=== PATIENT | male | born 1950 | race Caucasian/White ===

== ENCOUNTER 2022-02-25 10:07 | Outpatient (CLI) | payer MEDICARE, SELFPAY | END 2022-02-25 10:08 | disposition home or self-care (01) | PROVIDERS: PCP Internal Medicine; Visit Provider Neurological Surgery | DX: Z01.818 Encounter for other preprocedural examination (principal); M48.061 Spinal stenosis, lumbar region without neurogenic claudication | CPT/HCPCS: 36415; 86850; 86900; 86901 ==

== ENCOUNTER 2022-03-05 13:07 | Inpatient (IN) | payer MEDICARE, SELFPAY ==
[2022-02-19 11:13] VITALS: BMI 31.4
--- NOTE | 2022-02-19 11:39 | PC.NURSE ---
PRE-OP INSTRUCTIONS, PLEASE READ CAREFULLY Report to the Outpatient Waiting Room, entrance under the green pavilion located off [facility], at time _0600_ on date _03/05/22_. Planned Procedure Time: _0730_. PACK A SMALL OVERNIGHT BAG AND LEAVE IN THE CAR Time changes happen often and if your time is changed the preop area will call you the afternoon before. - You and your visitor will be asked to self-screen and do not enter if you have any COVID symptoms. - Only one visitor is requested with a max of two and NO children visitors are allowed at this time. - The patient visitor may be requested to leave or wait in car when not with patient due to distancing restrictions. - A mask is optional within the hospital. -VISITING HOURS 8AM-8PM Patients may have clear liquids (water, carbonated beverages, clear teas, apple juice) until 3 hours prior to surgery (0430 AM) with a maximum of 20 ounces. - No food from midnight until time of surgery Take the following medications with a SIP of water the morning of surgery: _CARBIDOPA-LEVODOPA, FLUDROCORTISONE_ Medications to discontinue _ASPIRIN PER DR. OVALLE'S INSTRUCTIONS_ Medications to discontinue per ANESTHESIA - _VITAMINS/SUPPLEMENTS 3 DAYS PRIOR TO SURGERY, Date to take last dose 03/01/22_ Please no make-up, nail uzbek, hairspray, perfume, deodorant, or body powder the day of surgery. No jewelry (including any body piercings) or valuables the day of surgery, leave them at home. Please take a shower or bath the night before, or the morning of, surgery with an antibacterial soap. Wear comfortable, loose fitting clothing. - Jewelry must be removed prior to entering the operating room. Rings and piercings that are not removed may be cut off. - The hospital will not accept responsibility for valuables. - Please leave all valuables, including medications, at home the day of surgery. If you are going home after surgery, a licensed solid waste truck driver must drive you home. - NO public transportation without another adult if you receive anesthesia. - We recommend that an adult stay with you for 24 hours following discharge. - We also recommend that you do not drive, make important decision, drink alcoholic beverages, or take any drugs that were not prescribed by your health care provider for at least 24 hours after your discharge time. Follow any additional instructions given to you from your surgeon. If you or anyone in your household have experienced Covid symptoms in the past week, please notify your surgeon or the nurse liaison at the phone number below for possible testing. Telephone instructions given to _PATIENT & SPOUSE and asked if any additional questions and then verbalized understanding. Patient advised to call surgeon office or pre surgery nurse liaison [phone] if any additional questions.
[2022-03-05] VITALS (16 sets, daily range): BP systolic 106–176; BP diastolic 62–90; PULSE 65–96; RESP 10–20; TEMP 36.2–37.1; O2SAT 92–100; BMI 33.0
--- NOTE | ~2022-03-05 | XR_ITS ---
EXAMINATION: XR fluoroscopy no charge DATE: 03/05/2022 11:13 INDICATION: Posterior lumbar L3-L4 interbody fusion TECHNIQUE: Single lateral fluoroscopic image of the lower lumbar spine was obtained during procedure performed by Dr. Rhodes. Radiologist was not present for the imaging or procedure. The amount of fl uoroscopy time used during this procedure was 0.1 minutes. COMPARISON: None. FINDINGS: Surgical retractors project over a lucent surgical defect posterior to the lower lumbar spine. Likely pre-existing L4-L5 instrumented anterior and posterior spinal fusions with interbody fusion bone gra ft cages and bilateral vertical pasquale and pedicle screw fixation. A pair of distal pedicle screws have been placed at L3 which are not yet connected via vertical rods. There is also been placement of a di fferent type of bone graft cage at L3-L4. There appears to be minimal retrolisthesis of L2 on L3 and L3 on L4. Vertebral body heights are normal. Mild disc height loss at L2-L3 and moderate disc height loss at L5-S1. IMPRESSION: 1. Fluoroscopy utilized for likely cephalad extension to L3 of a combined instrumented anterior and p osterior spinal fusion at L4-L5. See procedure note for further detail. Reviewed, dictated and finalized at location L. SKILLS EDUCATOR IMPRESSION: 1. Fluoroscopy utilized for likely cephalad extension to L3 of a combined instr umented anterior and posterior spinal fusion at L4-L5. See procedure note for f urther detail.
[2022-03-05] MEDS: LACTATED RINGERS 1,000 ML 30 ML IV CONT ×2 (06:45→11:32)
--- NOTE | 2022-03-05 07:25 | WPDANESEPPF ---
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 Patient Data Age: 71 Gender: M Height: 1.7 m Weight: 95.7 kg Last Vital Signs Temp 36.8 C 03/05/22 06:53 Pulse 65 03/05/22 06:53 Resp 16 03/05/22 06:53 BP 176/90 H 03/05/22 06:53 Pulse Ox 97 03/05/22 06:53 O2 Del Method Room Air 03/05/22 06:53 Allergies Allergy/AdvReac Type Severity Reaction Status Date / Time No Known Allergies Allergy Verified 03/05/22 06:16 Home Medications Medication Instructions Recorded Confirmed Type ascorbic acid (vitamin C) 500 mg 500 mg PO DAILY 02/19/22 03/05/22 History tablet (Vitamin C) aspirin 81 mg tablet,delayed 81 mg PO HS 02/19/22 03/05/22 History release atorvastatin 40 mg tablet 40 mg HS 02/19/22 03/05/22 History carbidopa 25 mg-levodopa 100 mg 1 tablet TID 02/19/22 03/05/22 History tablet cetirizine 10 mg tablet (Zyrtec) 10 mg PO DAILY 02/19/22 03/05/22 History cholecalciferol (vitamin D3) 25 25 mcg PO BID 02/19/22 03/05/22 History mcg (1,000 unit) chewable tablet cranberry 1 tab-cap EVERY OTHER DAY 02/19/22 03/05/22 History docusate sodium 100 mg capsule 100 mg PO BID 02/19/22 03/05/22 History (Colace) fludrocortisone 0.1 mg tablet 0.1 mg QAM 02/19/22 03/05/22 History lansoprazole 15 mg capsule,delayed 15 mg PO HS 02/19/22 03/05/22 History release melatonin 10 mg capsule 10 mg PO HS 02/19/22 03/05/22 History tadalafil 5 mg tablet 5 mg EVERY OTHER DAY 02/19/22 03/05/22 History zinc 1 tab-cap DAILY 02/19/22 03/05/22 History Other studies: pacer not pacer dependent more that 50% battery life Patient hx anesthesia problems: none Family hx anesthesia problems: none Results Review: All pre-operative results and documents have been reviewed as part of the pre-operative evaluation. [facility] Social History Social History Smoking status: Never smoker Second hand tobacco smoke exposure: No Alcohol intake: never Substance use: never Substance use type: does not use Living arrangements: with family Spiritual care concerns: No Anes - Eval Final PreProcedure Day of Procedure 03/05/22 07:25 Patient weight: obese Heart: regular rate and rhythm Lungs: clear to auscultation Airway: Mallampati scale class II Neurological: alert and oriented Last oral intake: >/= 8 hours ASA classification: III Emergent: no Anesthetic plan: proceed Anesthesia type and monitoring: general ETT and standard monitoring Results Review: All pre-operative results and documents have been reviewed as part of the pre-operative evaluation. Informed Consent: The patient's anesthetic plan and its attendant risks and benefits were discussed with the patient/family/POA. Questions were solicited and answers provided to the satisfaction of the patient/family/POA.
--- NOTE | 2022-03-05 08:39 | WPDHPUPDATE1 ---
History and Physical Update Update Date/Time: 03/05/22 08:39 History and Physical has been reviewed, including an updated exam of the patient. There are NO changes in the patient's condition. Risks, benefits, and alternatives have been discussed and questions answered. Patient agrees to proceed with procedure.
--- NOTE | 2022-03-05 08:39 | PM.IMHP ---
H&P: HPI History of Present Illness Date/Time: 03/05/22 08:39 Chief Complaint: Surya is a 71-year-old gentleman with back and leg pain related to junctional problems above and previous fusion who presents now for extension of his fusion to L3-4. He has not changed appreciably since we saw him last. He is not having bowel or bladder difficulty. He is not having any specific dermatomal numbness or muscle group weakness. Review of Systems Review of Systems: Patient denies shortness of breath, cough, fever, chills, nausea, vomiting, weight loss, weight gain, chest pain, dysuria. He has back and leg pain and stiffness as above. He his review of systems otherwise negative on 12 systems except as noted elsewhere. [facility] Social History Social History Smoking status: Never smoker Second hand tobacco smoke exposure: No Alcohol intake: never Substance use: never Substance use type: does not use Living arrangements: with family Spiritual care concerns: No Meds Home Medications and Allergies Home Medications Medication Instructions Recorded Confirmed Type ascorbic acid (vitamin C) 500 mg 500 mg PO DAILY 02/19/22 03/05/22 History tablet (Vitamin C) aspirin 81 mg tablet,delayed 81 mg PO HS 02/19/22 03/05/22 History release atorvastatin 40 mg tablet 40 mg HS 02/19/22 03/05/22 History carbidopa 25 mg-levodopa 100 mg 1 tablet TID 02/19/22 03/05/22 History tablet cetirizine 10 mg tablet (Zyrtec) 10 mg PO DAILY 02/19/22 03/05/22 History cholecalciferol (vitamin D3) 25 25 mcg PO BID 02/19/22 03/05/22 History mcg (1,000 unit) chewable tablet cranberry 1 tab-cap EVERY OTHER DAY 02/19/22 03/05/22 History docusate sodium 100 mg capsule 100 mg PO BID 02/19/22 03/05/22 History (Colace) fludrocortisone 0.1 mg tablet 0.1 mg QAM 02/19/22 03/05/22 History lansoprazole 15 mg capsule,delayed 15 mg PO HS 02/19/22 03/05/22 History release melatonin 10 mg capsule 10 mg PO HS 02/19/22 03/05/22 History tadalafil 5 mg tablet 5 mg EVERY OTHER DAY 02/19/22 03/05/22 History zinc 1 tab-cap DAILY 02/19/22 03/05/22 History Allergies Allergy/AdvReac Type Severity Reaction Status Date / Time No Known Allergies Allergy Verified 03/05/22 06:16 Vital Signs Vital Signs - 24 hr 03/05/22 06:53 Temperature 98.2 F Pulse Rate 65 Respiratory Rate 16 Blood Pressure 176/90 H Pulse Oximetry 97 Oxygen Delivery Room Air Exam Narrative: Strength is 5/5 in all muscle groups of the bilateral lower extremities. Sensation is intact to light touch throughout the lower extremities. Breathing is unlabored. Regular rate. Assessment and Plan Assessment and plan (1) Lumbar stenosis with neurogenic claudication: Code(s): M48.062 - Spinal stenosis, lumbar region with neurogenic claudication Status: Acute (2) Status post lumbar spinal fusion: Code(s): Z98.1 - Arthrodesis status Status: Acute Plan Surya is a 71-year-old gentleman with back and leg pain and claudication related to junctional stenosis who presents for L3-4 posterior lumbar interbody fusion. I again described to him that operation, its risks, potential benefits, the operative and postoperative course in detail answered all his questions personally. Indicates understanding and elects to proceed with that operation.
[2022-03-05] MEDS: ceFAZolin 2 GM/D5W 50 ML 2 GM/50 ML BAG IVPB (08:45)
[2022-03-05] MEDS: BUPIVACAINE/EPINEPHRINE 0.5% 10 ML VIAL INFILTRATE (09:19)
--- NOTE | 2022-03-05 11:28 | SUR.OPER ---
200mL of clear yellow urine drained from vora in OR
[2022-03-05] MEDS: fentaNYL CITRATE INJ (*CRX) 100 MCG/2 ML VIAL 25 MCG IV PUSH ×5 (11:51→13:00)
[2022-03-05] MEDS: HYDROcodone/acetaminophen (*CRX) 10-325 MG TABLET 1 TAB PO ×2 (14:16→19:52)
[2022-03-05] MEDS: CARBIDOPA/LEVODOPA 25/100 MG TABLET 1 TABLET BY MOUTH ×2 (15:30→17:47)
[2022-03-05] MEDS: KCL 20 MEQ/D5/0.45% SOD CHL 1,000 ML 100 ML IV CONT (15:31)
[2022-03-05] MEDS: CHOLECALCIFEROL 1,000 UNITS TABLET 1000 UNITS PO (17:47)
[2022-03-05] MEDS: DOCUSATE SODIUM 100 MG CAPSULE PO (17:47)
--- NOTE | 2022-03-05 18:18 | PC.NURSE ---
Patient walked the halls with RN and did great about 1800.
[2022-03-05] MEDS: PANTOPRAZOLE 40 MG TABLET PO (19:52)
[2022-03-05] MEDS: ATORVASTATIN 40 MG TABLET BY MOUTH (19:52)
[2022-03-05] MEDS: MELATONIN 5 MG TABLET 10 MG PO (19:52)
[2022-03-06] MEDS: HYDROcodone/acetaminophen (*CRX) 10-325 MG TABLET 1 TAB PO ×2 (00:25→05:46)
[2022-03-06 05:58] VITALS: BP 135/74; PULSE 70; RESP 16; TEMP 36.7; O2SAT 95
--- NOTE | 2022-03-06 07:22 | WPDANESPN ---
Anes - Prog Note Post-Op Date/Time: 03/06/22 07:22 Cardiovascular status: normal Respiratory status: normal Airway patency: baseline Mental status: baseline Post-Op hydration status: normal Vital Signs: Last Vital Signs Temp 36.7 C 03/06/22 05:58 Pulse 70 03/06/22 05:58 Resp 16 03/06/22 05:58 BP 135/74 03/06/22 05:58 Pulse Ox 95 03/06/22 05:58 O2 Del Method Room Air 03/05/22 13:30 O2 Flow Rate 2 03/05/22 13:02 Pain Score (VAS): 2 I/O: Intake & Output 03/05/22 03/05/22 03/06/22 15:59 23:59 07:59 Intake Total 400 870 825 Output Total 165 1325 1300 Balance 176 -548 -112 Post-procedural complaints: none Patient Feedback: Patient satisfied with anesthetic care.
[2022-03-06] MEDS: CARBIDOPA/LEVODOPA 25/100 MG TABLET 1 TABLET BY MOUTH (09:32)
[2022-03-06] MEDS: ASCORBIC ACID 500 MG TABLET PO (09:32)
[2022-03-06] MEDS: CHOLECALCIFEROL 1,000 UNITS TABLET 1000 UNITS PO (09:32)
[2022-03-06] MEDS: DOCUSATE SODIUM 100 MG CAPSULE PO (09:32)
[2022-03-06] MEDS: LORATADINE 10 MG TABLET PO (09:32)
[2022-03-06] MEDS: HYDROcodone/acetaminophen (*CRX) 5-325 MG TABLET 1 TAB PO (09:42)
[2022-03-06 16:24] VITALS: BP 130/69; PULSE 75; RESP 16; O2SAT 97
--- NOTE | 2022-03-06 19:28 | PC.NURSE ---
Hemovac removed at [address] Rhodes verbal order at 1530.
--- NOTE | 2022-03-12 13:23 | W.PM.PROC2 ---
Procedure Note - Detailed Date of Procedure 03/12/22 Pre-op Diagnosis junctional stenosis of lumbar spine Post-op Diagnosis Same Procedure Performed L3-4 laminectomy and bilateral facetectomy, L3-4 complete diskectomy and interbody arthrodesis utilizing titanium interbody devices from [employer] and local autograft bone, L3-4 [place] pedicle screw instrumentation Surgeon Ramakrishna Rhodes MD Anesthesia General Indications Surya is a 71-year-old gentleman with back and leg pain related to junctional stenosis who presents for extensive of his fusion to L3. Description of Procedure The patient was brought to the operating room in the supine position, was sedated, intubated and placed under general anesthesia in routine fashion. He was then turned into the prone position on a open Howard table. The area of operation on his back was examined, marked for incision, prepped and draped in routine sterile fashion. Incision was marked over the L3 through 5 spinous processes in the midline. This area was injected with 0.5% lidocaine with [id number] epinephrine. Intravenous antibiotics given prior to incision. Incision was made with a 10 blade scalpel down to the lumbodorsal fascia. A subperiosteal dissection of the muscle soft tissue weight spinous process lamina at L3 was performed with the subperiosteal elevator and Bovie cautery. A verifying x-rays obtained to verify the level operation. The instrumentation at L4-5 was uncovered using Bovie cautery. Self-retaining tractors were placed. The L3 spinous process was removed with a Lauren rongeur. Kerrison punches, curved curettes and a Leksell rongeur were used to remove lamina in the midline until a soft contents of the canal or encountered. A Midas Erik drill was used to resect the pars bilaterally at L3. The inferior jugular process and facet of L3 could then be removed bilaterally. These posts spinous process were stripped free of soft tissue and morselized for later use as interbody autograft. Kerrison punches include curettes were used to define a plane with the dura and removed bone and ligament flush with the pedicle and through the foramina widely decompressing the exiting nerve roots. With the thecal sac retracted and protected the disc space was entered bilaterally using an 11 blade scalpel. Scrapers of various sizes, curettes of various configurations, a pituitary rongeur and a rasp were used to remove as much cartilaginous endplate and disc material as possible down to bleeding cortical flat surfaces on the opposing bones. The disc space was incised an appropriately-sized titanium interbody devices were chosen. These were filled with local autograft bone. The disc space was likewise filled with local autograft bone medially and anteriorly. The interbody devices were then placed to a 2-3 mm countersink within the disc space bilaterally. Pedicle screw instrumentation was performed at L3 by observing and palpating the pedicle while a hole was made in the superior taken process of the pedicle using a Midas Erik drill. The pedicle was then cannulated with a pedicle probe, checked for continuity with the ball probe, tapped with a 5.5 mm tap and a 6.5 x 50 mm screw was placed into each L3 pedicle. Using the appropriate drivers the caps were removed at L4-L5 as was the pasquale. A new pasquale was fit between the L3 and L5 screws including L4 and secured in position using the caps for that purpose. These were definitively tightened with the torque and anti torque device. A verify x-rays obtained to verify good position of the instrumentation which was confirmed. The wound was then copiously irrigated with bacitracin irrigation all bleeding was stopped with bipolar and Bovie cautery and Gelfoam thrombin powder. The wound was then closed in layered fashion with 2-0 Vicryl interrupted sutures in a lumbodorsal fascia and Cathy's layer. 3-0 Vicryl buried interrupted sutures were placed the dermis and the skin was
--- NOTE | 2022-03-12 13:45 | PM.DS ---
DS: Admitting Diagnosis Discharge Date 03/06/22 Admitting Diagnosis L3-4 junctional stenosis DS: Discharge Diagnosis Discharge Diagnosis Plan Mr. Oh was admitted to the hospital with junctional stenosis above an L4-5 fusion for extension of his fusion after adequate decompression at L3-4. Sixty DS: Summary Hospital Course Hospital Course: Mr. Oh was taken to the operating room on 03/05/2022 with the aforementioned operation was performed without complication. The patient with for postoperative. On postoperative day 1 his drain and Claudio catheter removed. He was eating, ambulating, and doing his bladder and his pain was under control with by mouth pain medicine. His wounds remained clean dry and intact. He was afebrile with stable vital signs. He was therefore allowed to be discharged to home. Time Spent with Patient Time attestation: Total time spent providing and/or coordinating discharge services: Discharge Plan Discharge Attending physician on discharge: Ramakrishna Rhodes Consulting providers: Surya Lewis Discharging Clinician: Ramakrishna Rhodes Anticipated Discharge Date/Time: 03/06/22 12:00 Patient Disposition: Home, Self-Care Activity: other - see discharge instructions Diet: regular Wound Care Instructions: follow printed instructions Discharge Instructions: INSTRUCTIONS AFTER YOUR THORACIC OR LUMBAR FUSION Incisions may be closed with either: Steri-strip tapes (let them wear off on their own). Surgical glue (let it peel off on its own). Sutures or maria m (call the office for an appointment to have these removed). Keep the incision dry for the first three days after surgery. Never apply ointments or lotions to the incision. The incision should be checked daily. Notify the office if there is drainage, redness, or if you have fever with a temperature of over 100 degrees. You are encouraged to walk as much as comfortable, with assistance as needed. For example, it may be beneficial to walk short distances hourly during the waking hours and gradually increase walking during your recovery period. Fatigue can be common. If a brace has been requested by your physician, it should be always worn when up. The brace does not need to be worn when you are in bed. It may be removed for short periods, such as bathing and using the bathroom. Avoid any bending, heavy lifting, or twisting movements. You have an [id number]-pound lift restriction until further advised by your physician (A gallon of milk weighs eight pounds). Sometimes a bone growth stimulator will be used postop. Instructions for the use of a stimulator will come from your printing supplies sales representative. Make frequent position changes, avoiding long periods of sitting. Try not to sit more than 30 minutes at a time. You may engage in sexual activity in two weeks as tolerated. No housework, especially vacuuming, making beds, or doing laundry until seen in the office. You may walk stairs carefully. Minimize car rides for two weeks. Driving can usually be resumed within three to four weeks, however you may not drive at that time if still taking pain medications. Once you are discharged from the hospital, please call the office to set up your postop appointment. The physician may order pain medication and/or muscle relaxers. As time goes by, you should require less of these. Always take your medication as ordered, and only if needed. If you take more than prescribed, it will not be refilled early. If you feel you require narcotic medication refill, kindly give the office a 72-hour notice. No refills are given over the weekend. Avoid use of anti-inflammatory medications (like Ibuprofen, Aleve, Advil, Motrin) for up to three months following fusion surgery. Use of these medications may slow healing. Over the counter Tylenol products may be used but use caution mixing Tylenol with your pain medication. The common pain pills include acetaminophen as an ingred
== END 2022-03-06 17:06 | disposition home or self-care (01) | DRG 460 ==
LOC: ANHSUROVER 13:15
PROVIDERS: Admitting Provider Neurological Surgery; PCP Internal Medicine; Visit Provider Neurological Surgery
PROC: 0SG00AJ Fusion of Lumbar Vertebral Joint with Interbody Fusion Device, Posterior Approach, Anterior Column, Open Approach (ICD-10-PCS; CPT 22612; principal; 2022-03-05 08:15)
DX: M48.062 Spinal stenosis, lumbar region with neurogenic claudication (principal); Z98.1 Arthrodesis status; Z79.82 Long term (current) use of aspirin
CPT/HCPCS: 97161; 97165; 97530; 97535; 99199; A9270; C1713; J0690; J1100; J1170; J2250; J2405; J2704; J3010; J3480; J7120

== ENCOUNTER 2022-12-06 00:24 | Day surgery (SDC) | payer MEDICARE, SELFPAY ==
[2022-11-21 13:10] VITALS: BMI 31.1
[2022-12-06 06:20] VITALS: BP 150/81; PULSE 65; RESP 18; TEMP 36.1; O2SAT 97
[2022-12-06] MEDS: LACTATED RINGERS 1,000 ML 150 ML IV CONT (06:33)
--- NOTE | 2022-12-06 07:24 | P.PNAN_ITS ---
Anes - Initial Pre Proc Eval Procedure: Operation Date: 12/06/22 07:30 Proposed Procedures p Colonoscopy - Chester Blackburn MD Date/Time: 12/06/22 07:24 Surgeon: Chester Blackburn MD Pre Op Diagnosis: family hx colon ca, hx colon polyps Patient Data Age: 72 Gender: M Height: 1.73 m Weight: 94.2 kg Last Vital Signs Temp 97 F L 12/06/22 06:20 Pulse 65 12/06/22 06:20 Resp 18 12/06/22 06:20 BP 150/81 H 12/06/22 06:20 Pulse Ox 97 12/06/22 06:20 O2 Del Method Room Air 12/06/22 06:20 Allergies Allergy/AdvReac Type Severity Reaction Status Date / Time meperidine [From Demerol] Allergy Other Verified 12/06/22 06:19 Home Medications Medication Instructions Recorded Confirmed Type aspirin 81 mg tablet,delayed 81 mg PO HS 02/19/22 11/21/22 History release atorvastatin 40 mg tablet 40 mg PO HS 02/19/22 11/21/22 History carbidopa 25 mg-levodopa 100 mg 1 tablet PO TID 02/19/22 11/21/22 History tablet cetirizine 10 mg tablet (Zyrtec) 10 mg PO DAILY 02/19/22 11/21/22 History cholecalciferol (vitamin D3) 25 25 mcg PO BID 02/19/22 11/21/22 History mcg (1,000 unit) chewable tablet docusate sodium 100 mg capsule 100 mg PO DAILY 02/19/22 11/21/22 History (Colace) fludrocortisone 0.1 mg tablet 0.1 mg PO QAM 02/19/22 11/21/22 History esomeprazole magnesium 20 mg 20 mg PO BID 11/21/22 11/21/22 History capsule,delayed release multivitamin with minerals-folic 1 tablet PO DAILY 11/21/22 11/21/22 History acid 0.4 mg tablet tamsulosin 0.4 mg capsule 0.4 mg PO DAILY 11/21/22 11/21/22 History Patient hx anesthesia problems: none Family hx anesthesia problems: none Results Review: All pre-operative results and documents have been reviewed as part of the pre- operative evaluation. [facility] Social History Social History Smoking status: Never smoker Second hand tobacco smoke exposure: No Alcohol intake: never Substance use: never Substance use type: does not use Lack of Transportation: No Lack of Food: Never True Current Housing: I Have Housing Concerned About Future Housing: No Difficulty Paying Gas/Electric Bills: No Difficulty Paying for Meds: No Currently Unemployed: No Education: Master's Degree or Higher Difficulty w/ Childcare or Family Care: No Living arrangements: with family Spiritual care concerns: No Anes - Eval Final PreProcedure Day of Procedure 12/06/22 07:24 Patient weight: obese Heart: regular rate and rhythm Lungs: clear to auscultation Airway: Mallampati scale class III Neurological: alert and oriented Last oral intake: >/= 8 hours ASA classification: III Emergent: no Anesthetic plan: proceed Anesthesia type and monitoring: general GIVS and standard monitoring Results Review: All pre-operative results and documents have been reviewed as part of the pre- operative evaluation. Informed Consent: The patient's anesthetic plan and its attendant risks and benefits were discussed with the patient/family/POA. Questions were solicited and answers provided to the satisfaction of the patient/family/POA.
--- NOTE | 2022-12-06 07:27 | PM.HPGS ---
History of Present Illness History of Present Illness Consent: Risks, benefits, and alternatives have been discussed and questions answered. Patient agrees to proceed with procedure. Chief complaint: family hx colon ca, hx colon polyps Narrative: Surya Oh is a 72 year old male with last colonoscopy 2018, sister had colon cancer Review of Systems Constitutional: Constitutional: Denies headache(s) and Denies weakness Eyes: Eyes: Denies blurry vision ENT: Reports Normal hearing present, Denies headache(s) and Denies neck pain Cardiovascular: Cardiovascular: Denies chest pain and Denies dyspnea Respiratory: Respiratory: Denies dyspnea Gastrointestinal: Gastrointestinal: Reports no additional gastrointestinal complaints Genitourinary: Genitourinary: Denies dysuria Musculoskeletal: Musculoskeletal: Denies neck pain Integumentary/Breasts: Skin/Breast: Denies dry skin Neurologic: Reports Normal hearing present, Denies headache(s) and Denies weakness Psychiatric: Psychiatric: Denies anxiety Endocrine: Endocrine: Denies change in body appearance Hematologic/Lymphatic: Hematologic/Lymphatic: Denies easy bleeding Allergic/Immunologic: Allergic/Immunologic: Denies urticaria PMFSH Past Medical History Medical History (Updated 12/06/22 @ 07:27 by Chester Blackburn MD) Family history of colon cancer Social History Social History Smoking status: Never smoker Second hand tobacco smoke exposure: No Alcohol intake: never Substance use: never Substance use type: does not use Lack of Transportation: No Lack of Food: Never True Current Housing: I Have Housing Concerned About Future Housing: No Difficulty Paying Gas/Electric Bills: No Difficulty Paying for Meds: No Currently Unemployed: No Education: Master's Degree or Higher Difficulty w/ Childcare or Family Care: No Living arrangements: with family Spiritual care concerns: No Meds Home Medications and Allergies Home Medications Medication Instructions Recorded Confirmed Type aspirin 81 mg tablet,delayed 81 mg PO HS 02/19/22 11/21/22 History release atorvastatin 40 mg tablet 40 mg PO HS 02/19/22 11/21/22 History carbidopa 25 mg-levodopa 100 mg 1 tablet PO TID 02/19/22 11/21/22 History tablet cetirizine 10 mg tablet (Zyrtec) 10 mg PO DAILY 02/19/22 11/21/22 History cholecalciferol (vitamin D3) 25 25 mcg PO BID 02/19/22 11/21/22 History mcg (1,000 unit) chewable tablet docusate sodium 100 mg capsule 100 mg PO DAILY 02/19/22 11/21/22 History (Colace) fludrocortisone 0.1 mg tablet 0.1 mg PO QAM 02/19/22 11/21/22 History esomeprazole magnesium 20 mg 20 mg PO BID 11/21/22 11/21/22 History capsule,delayed release multivitamin with minerals-folic 1 tablet PO DAILY 11/21/22 11/21/22 History acid 0.4 mg tablet tamsulosin 0.4 mg capsule 0.4 mg PO DAILY 11/21/22 11/21/22 History Allergies Allergy/AdvReac Type Severity Reaction Status Date / Time meperidine [From Demerol] Allergy Other Verified 12/06/22 06:19 Vital Signs Vital Signs - 24 hr 12/06/22 06:20 Temperature 97 F L Pulse Rate 65 Respiratory Rate 18 Blood Pressure 150/81 H Pulse Oximetry 97 Oxygen Delivery Room Air Exam Const: General: comfortable and no acute distress HENMT: Face/Nose/Sinus: Normal nares present Eyes: General: appearance normal, both eyes and all related structures Neck: Neck: no JVD Resp: Auscultation: clear to auscultation bilaterally Cardio: Rate: regular rate Rhythm: regular rhythm GI: Inspection: non-distended GI Palp: Yes Soft to palpation Skin: General skin exam: normal color Neuro: General: gait normal Speech: normal speech Extrem: General: normal to inspection Psych: Mental Status: mental status grossly normal Assessment and Plan Assessment and plan (1) Family history of colon cancer: Code(s): Z80.0 - Fa
[2022-12-06 07:50] VITALS: BP 120/76; PULSE 60; RESP 12; O2SAT 95
[2022-12-06 08:00] VITALS: BP 113/78; PULSE 62; RESP 18; O2SAT 98
[2022-12-06 08:10] VITALS: BP 152/91; PULSE 60; RESP 18; O2SAT 98
== END 2022-12-06 08:16 | disposition home or self-care (01) ==
PROVIDERS: PCP Internal Medicine; Visit Provider Internal Medicine Gastroenterology
PROC: 0DJD8ZZ Inspection of Lower Intestinal Tract, Via Natural or Artificial Opening Endoscopic (ICD-10-PCS; CPT 45378; principal; 2022-12-06 07:30)
DX: Z12.11 Encounter for screening for malignant neoplasm of colon (principal); D12.2 Benign neoplasm of ascending colon; K64.8 Other hemorrhoids; E66.9 Obesity, unspecified; Z68.31 Body mass index [BMI] 31.0-31.9, adult; Z79.82 Long term (current) use of aspirin; Z80.0 Family history of malignant neoplasm of digestive organs
CPT/HCPCS: 45385; 88305; J2704; J7120